=== PATIENT | female | born 1970 ===

== ENCOUNTER 2024-09-10 13:06 | Day surgery (SDC) | payer SELFPAY ==
[2024-09-10 14:14] VITALS: BMI 29.9
[2024-09-10 14:14] LABS: Glucose - Point of Care 64 mg/dl (70-99)
[2024-09-10 14:15] VITALS: BP 151/58; BMI 29.9
[2024-09-10] MEDS: DEXTROSE 50% SYRINGE 12.5 GRAMS IV (14:56)
[2024-09-10 15:04] VITALS: BP 141/56
[2024-09-10] MEDS: DILAUDID 1 MG IV (15:04)
[2024-09-10 15:15] VITALS: BP 141/52
[2024-09-10 15:30] VITALS: BP 133/62
[2024-09-10 15:31] LABS: Glucose - Point of Care 149 mg/dl (70-99)
[2024-09-10 15:45] VITALS: BP 135/76
--- NOTE | 2024-09-10 20:12 | SUR.PHASEII ---
patient brought to PACU to continue to wait for ambulance transport back to [facility]. Awake and alert, upset with waiting. vss. some RUQ discomfort - ' same.' Talkative, had snack earlier. Harsh nonproductive cough.
[2024-09-10 20:15] VITALS: BP 153/72
--- NOTE | 2024-09-10 20:55 | SUR.PHASEII ---
Nurse Bonilla reached at [facility] and report given. two calls to reach nurse
== END 2024-09-10 20:21 | disposition short-term general hospital (02) ==
LOC: SDS 13:06
PROVIDERS: ATTENDING PHYSICIAN Internal Medicine Gastroenterology
DX: K83.8 Other specified diseases of biliary tract (principal)
CPT/HCPCS: 43237; 82962